=== PATIENT | female | born 1950 | race Caucasian/White ===

== ENCOUNTER 2019-11-24 11:40 | Outpatient (CLI) | payer MEDICARE, BC, SELFPAY ==
--- NOTE | 2019-11-24 11:46 | MM_ITS ---
WS: [id number] Bilateral screening digital mammogram, 11/24/2019 Clinical Data: SCREENING Comparison: 10/21/2018, 10/03/2017, 10/27/2015, 01/25/2011, 06/17/2008. Findings: The breast parenchymal pattern shows heterogeneous density No spiculated masses or clustered calcific ations are seen. There are no secondary signs of carcinoma. MM/[id number] Impression: 1. Negative bilateral mammogram unchanged. 2. Recommend annual screening mammograms. BIRADS: 1-Negative FOLLOW UP: 1 Year Follow-up The CAD glass checker was used.
== END 2019-11-24 11:41 | disposition home or self-care (01) ==
LOC: RADSHAW 11:45
PROVIDERS: PCP Nurse Practitioner Family; Visit Provider Nurse Practitioner Family
DX: Z12.31 Encounter for screening mammogram for malignant neoplasm of breast (principal)
CPT/HCPCS: 77067

== ENCOUNTER 2021-01-03 09:08 | Outpatient (CLI) | payer MEDICARE, BC, SELFPAY ==
--- NOTE | 2021-01-03 09:15 | MM_ITS ---
WS: [id number] Bilateral screening digital mammogram, 01/03/2021 Clinical Data: SCREENING Comparison: 11/24/2019, 10/21/2018, 10/08/2017, 10/27/2015, 01/25/2011, 06/17/2008. Findings: The breast parenchymal pattern shows heterogeneous density. No spiculated masses or clustered calcif ications are seen. There are no secondary signs of carcinoma. MM/[id number] Impression: 1. Negative bilateral mammogram unchanged. 2. Recommend annual screening mammograms. BIRADS: 1-Negative FOLLOW UP: 1 Year Follow-up The CAD box car checker was used.
== END 2021-01-03 09:09 | disposition home or self-care (01) ==
LOC: RADSHAW 09:14
PROVIDERS: PCP Nurse Practitioner Family; Visit Provider Nurse Practitioner Family
DX: Z12.31 Encounter for screening mammogram for malignant neoplasm of breast (principal)
CPT/HCPCS: 77067

== ENCOUNTER 2022-01-16 08:30 | Outpatient (CLI) | payer MEDICARE, BC, SELFPAY ==
--- NOTE | 2022-01-16 08:41 | MM_ITS ---
WS: [id number] BILATERAL SCREENING DIGITAL TOMOSYNTHESIS MAMMOGRAM WITH CAD HISTORY: SCREENING COMPARISON: 01/03/2021 and 11/24/2019 Bilateral CC and MLO views with tomosynthesis and synthetic mammography submitted. Computer aided det ection analyzed. Breast composition: There are scattered areas of fibroglandular density. No suspicious masses, microc alcifications or architectural distortion. Asymmetries within each breast are stable since at least . MM/[id number] IMPRESSION: BI-RADS: 2-Benign FOLLOW UP: 1 Year Follow-up
== END 2022-01-16 08:31 | disposition home or self-care (01) ==
LOC: RAD 08:31
PROVIDERS: PCP Nurse Practitioner Family; Visit Provider Nurse Practitioner Family
DX: Z12.31 Encounter for screening mammogram for malignant neoplasm of breast (principal)
CPT/HCPCS: 77063; 77067

== ENCOUNTER 2023-01-28 08:45 | Outpatient (CLI) | payer MEDICARE, SELFPAY ==
--- NOTE | 2023-01-28 08:53 | MM_ITS ---
WS: [id number] BILATERAL 3D TOMOSYNTHESIS DIGITAL SCREENING MAMMOGRAPHY WITH CAD CLINICAL INFORMATION: SCREENING HISTORY: Screening mammogram. No current complaints. COMPARISON: 2021 TECHNIQUE: Bilateral CC and MLO views. FINDINGS: Scattered fibroglandular densities bilaterally. No suspicious focal mass, asymmetry, calcifications, or architectural distortion. No evidence of malignancy. Vascular calcification. Incidental punctate c alcifications. IMPRESSION: MM/[place] [id number] BI-RADS: 2-Benign FOLLOW UP: 1 Year Follow-up Recommend return to annual screening mammography.
== END 2023-01-28 08:46 | disposition home or self-care (01) ==
PROVIDERS: PCP Nurse Practitioner Family; Visit Provider Nurse Practitioner Family
DX: Z12.31 Encounter for screening mammogram for malignant neoplasm of breast (principal)
CPT/HCPCS: 77063; 77067

== ENCOUNTER 2023-08-07 18:18 | Inpatient (IN) | payer MEDICARE, SELFPAY ==
[2023-08-07] VITALS (7 sets, daily range): BP systolic 102–165; BP diastolic 65–86; PULSE 70–77; RESP 16–18; TEMP 36.6–36.9; O2SAT 95–97; BMI 23.7; BMI 24.4
--- NOTE | 2023-08-07 18:30 | W.ED.EXTPRO ---
HPI - Extremity Problem General: Chief complaint: Extremity Injury, Lower Stated complaint: FALL; HIP PAIN Time Seen by Provider: 08/07/23 18:29 History of Present Illness: Patient presents to the ER status post fall. Patient was helping her in a wheelchair and fell landed on her left hip region. This area is exquisitely tender to palpation there is shortening of the leg. Patient is not on any anticoagulants and denies hitting her head or pain anywhere else. Review of Systems General: Reports: 10 or more systems reviewed and unremarkable except in HPI and below Physical Exam Const: COMMON NORMALS: no acute distress, average body habitus, patient oriented x3, no limitations, healthy appearing, alert and well nourished HENMT: COMMON NORMALS: normocephalic, atraumatic, hearing grossly normal bilaterally, external ears normal, Normal external nose present, moist oral mucous membranes and oropharynx normal HEAD & SCALP: normocephalic and atraumatic NOSE: Normal external nose present EXTERNAL EAR: Yes external ears normal Neck/C-Spine: COMMON NORMALS: full ROM, no lymphadenopathy, supple, no meningeal signs, no JVD and Thyroid normal THYROID: Thyroid normal Chest: COMMONS NORMALS: normal inspection of the chest and normal palpation of entire chest wall Resp: COMMON NORMALS: normal respiratory effort, No retractions, No use of accessory muscles and clear to auscultation bilaterally AUSCULTATION: clear to auscultation bilaterally Cardio: COMMON NORMALS: no JVD, regular rate, regular rhythm, S1 normal heart sound present, S2 normal heart sound present, No gallops present (Cardio), No clicks present (Cardio), No murmurs present (Cardio) and No rub (Cardio) RATE: regular rate RHYTHM: regular rhythm HEART SOUNDS: S1 normal heart sound present and S2 normal heart sound present GI: COMMON NORMALS: Normal to inspection, nondistended, normoactive bowel sounds present, Soft to palpation, non-tender, No hepatosplenomegaly present and no masses PALPATION: Yes Soft to palpation and Yes No hepatosplenomegaly present Extremity: NARRATIVE EXTREMITY EXAM: Mild shortening and external rotation of the left lower extremity, pain with palpation of the hip, limited range of motion, Neuro: COMMON NORMALS: patient oriented x3 SENSORIUM/ORIENTATION: Yes alert MENINGEAL SIGNS: Yes no meningeal signs Course Vital Signs: Vital signs: Vital Signs Temperature 98.5 F 08/07/23 18:23 Pulse Rate 70 08/07/23 20:23 Respiratory Rate 18 08/07/23 20:23 Blood Pressure 145/75 08/07/23 20:23 Pulse Oximetry 97 08/07/23 20:23 Oxygen Delivery Me thod Room Air 08/07/23 20:23 MDM - Extremity (Nontraumatic) Medical Decision Making Patient had x-ray of the hip which showed a subcapital hip fracture, we then proceeded with presurgical clearance once official report was obtained we called Dr. Traylor who agreed to consult the patient and probably operate on her tomorrow. He would like her admitted to the hospitalist. Dr. Osorio was notified and agreed to place patient in [facility] for evaluation and treatment. Differential Diagnosis Unlikely herpes zoster, gout, cellulitis, superficial thrombophlebitis, deep venous thrombosis of upper extremity, lower extremity edema or deep vein thrombosis of lower extremity Medical Records I reviewed the patient's medical records. Lab Data I reviewed the patient's lab results. Radiology Impressions Hip/Pelvis X-Ray 08/07/23 18:35 IMPRESSION: Subcapital hip fracture. Chest X-Ray 08/07/23 19:20 IMPRESSION: No acute findings. 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
--- NOTE | 2023-08-07 18:35 | XRR_ITS ---
PROCEDURE INFORMATION: Exam: XR Left Hip Exam date and time: 08/07/2023 6:54 PM Age: 73 years old Clinical indication: Injury or trauma; Fall; Other: Unknown; Additional info: Fall hip pain TECHNIQUE: Imaging protocol: Radiologic exam of the left hip. Views: 2 or 3 views hip with pelvis when performed. COMPARISON: No relevant prior studies available. FINDINGS: Bones/joints: Subcapital hip fracture. Soft tissues: Unremarkable. XR/XR hip LT 2-3V wo/w pel* [id number] IMPRESSION: Subcapital hip fracture.
--- NOTE | 2023-08-07 19:20 | XRR_ITS ---
PROCEDURE INFORMATION: Exam: XR Chest Exam date and time: 08/07/2023 7:27 PM Age: 73 years old Clinical indication: Injury or trauma; Fall; Other: Unknown TECHNIQUE: Imaging protocol: Radiologic exam of the chest. Views: 1 view. COMPARISON: No relevant prior studies available. FINDINGS: Lungs: Unremarkable. No consolidation. Pleural spaces: Unremarkable. No pleural effusion. No pneumothorax. Heart/Mediastinum: Unremarkable. No cardiomegaly. Bones/joints: Unremarkable. XR/XR chest 1V portable [id number] IMPRESSION: No acute findings.
[2023-08-07] MEDS: ondansetron 2 mg/ML SDV 2 mL 4 MG IVP (20:20)
[2023-08-07] MEDS: morphine 4 mg/mL SDV 1 mL IVP (20:21)
--- NOTE | 2023-08-07 20:23 | ECG_ITS ---
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 Measurements Intervals Warren Rate: 73 P: 64 MS: 164 QRS: 53 QRSD: 90 T: 58 QT: 371 QTc: 411 Interpretive Statements SINUS RHYTHM LOW QRS VOLTAGE IN PRECORDIAL LEADS [QRS DEFLECTION < 1.0 mV IN CHEST LEADS] No previous ECG available for comparison Electronically Signed On 08-09-2023 19:16:54 CDT by Kristal Lindsey M.D. [email or web address]
--- NOTE | 2023-08-07 20:34 | P.HP_ITS ---
Providers/Chief Complaint 2 Primary Care Provider: Leighann Sharp Chief Complaint: FALL; HIP PAIN History of Present Illness Marina Crump is a 73 year old female who was helping her maneuver his wheelchair when she lost balance and fell on the floor, in the ER she has been diagnosed with subcapital hip fracture, Dr. Traylor consulted who has requested hospitalist to admit the patient. Patient is stating that she is has live a very healthy life, she is not diabetic, no history of coronary disease or CHF. She is fairly active, able to take a flight of stairs, walks 1 mile per day. Takes care of her sick . She is attributing her fall to losing balance while helping her today. Review of Systems 2 Const: Denies: fever(s) Eyes: Denies: change in vision ENMT: Denies: throat pain Card: Denies: chest pain Resp: Denies: dyspnea GI: Denies: abdominal pain : Denies: flank pain Medications/Allergies Allergies Allergy/AdvReac Type Severity Reaction Status Date / Time Sulfa (Sulfonamide Allergy ALGY-Rash Verified 08/07/23 18:29 Antibiotics) PFSH Acute 2 PFSH: Medical History (Updated 08/07/23 @ 21:14 by Britney Osorio MD) No pertinent past medical history Surgical History (Updated 08/07/23 @ 21:14 by Britney Osorio MD) No history of previous surgery Family History (Updated 08/07/23 @ 21:14 by Birtney Osorio MD) Other CAD (coronary artery disease) Social History (Updated 08/07/23 @ 21:14 by Britney Osorio MD) Smoking and tobacco/nicotine status: never used tobacco/nicotine Alcohol intake: never Vitals/I&O/Wt Last Vital Signs Temp 98.5 F 08/07/23 18:23 Pulse 70 08/07/23 20:23 Resp 18 08/07/23 20:23 BP 145/75 08/07/23 20:23 Pulse Ox 97 08/07/23 20:23 O2 Del Method Room Air 08/07/23 20:23 Weight last 48 hrs Weight 79.379 kg Physical Exam 2 Narrative: female Pleasant Dehydrated GCS 15 Left leg shortened and right Known to vascular compromise GCS 15 Pleasant cooperative S1, S2 Currently patient is on room air Son is at the bedside Data 08/07/23 20:42 08/07/23 20:42 A&P Assessment and plan (1) Fracture of hip: Qualifiers: Encounter type: initial encounter Fracture type: closed Laterality: l eft Qualified Code(s): S72.002A - Fracture of unspecified part of neck of left femur, initial encounter for closed fracture (2) Fall: Qualifiers: Encounter type: initial encounter Qualified Code(s): W19.XXXA - Unspecified fall, initial encounter Plan Mechanical fall Hip fracture Dr. Traylor consulted N.p.o. after midnight Continue fluids Added bowel regimen along opioids Perry catheter placed Vitamin D and calcium supplementation, I have asked patient to follow-up with PCP for bisphosphonate initiation No preoperative workup needed patient is fairly active able to take flight of stairs, walks 1 mile per day No history of CHF [place] or diabetes Full code N.p.o. after midnight DVT prophylaxis: SCDs Attestations 2 Medical Necessity Statement*: More than 2 midnights anticipated Diagnoses Fracture of hip S72.002A Encounter type: initial encounter Fracture type: closed Laterality: left Fall W19.XXXA Encounter type: initial encounter
[2023-08-07 20:52] LABS: Basophils % 0.4 %; Eosinophils % 0.4 %; Hematocrit 38.2 % (36-47); Lymphocytes % 10.5 %; Mean Corpuscular HGB Conc 32.5 g/dL (30-55); Mean Corpuscular Hemoglobin 30.3 pg (27-33); Mean Corpuscular Volume 93.4 fl (85-98); Mean Platelet Volume 9.7 fL (7.4-10.4); Monocytes # 0.4 10^3/uL (0.2-0.9); Monocytes % 4.5 %; Neutrophils % 83.7 %; Nucleated Red Blood Cells % 0 %; Platelet Count 201 10^3/cmm (157-399); Red Blood Count 4.09 10^6/uL (3.85-5.65); Red Cell Distribution Width 13.5 % (12.1-15.1)
[2023-08-07 21:07] LABS: INR 1.02 (0.8-1.2)
[2023-08-07 21:11] LABS: Alanine Aminotransferase 15 U/L (0-33); Albumin Level 3.9 g/dL (3.5-5.2); Alkaline Phosphatase 76 U/L (35-105); Anion Gap 15.7 (5-19); Aspartate Amino Transferase 20 U/L (0-32); Blood Urea Nitrogen 14 mg/dL (8-23); Calcium 9.2 mg/dL (8.5-10.5); Carbon Dioxide 23 mmol/L (22-29); Chloride 101 mmol/L (98-107); Creatinine Clr Calc Pharmacy 74.7583; Glucose 88 mg/dL (65-115); Osmolality Calculated 282 mOsm/kg (285-295); Potassium 3.7 mmol/L (3.5-5.1); Sodium 136 mmol/L (136-145); Total Bilirubin 0.6 mg/dL (0.15-1.2); Total Protein 6.9 g/dL (6.6-8.7)
[2023-08-07 21:52] LABS: D Dimer >= 20.00 ug/mLFEU (0-0.59)
[2023-08-07] MEDS: sodium chloride 0.9% 1,000 ML 75 ML IV (23:26)
[2023-08-07] MEDS: morphine IR 15 mg Tablet PO (23:26)
[2023-08-08] VITALS (19 sets, daily range): BP systolic 97–139; BP diastolic 52–78; PULSE 68–92; RESP 10–18; TEMP 36.4–37.3; O2SAT 90–100
[2023-08-08 00:10] LABS: 25 Hydroxy Vitamin D 34 ng/mL (30-100)
[2023-08-08 00:12] LABS: Thyroid Stimulating Hormone 3.74 uIU/mL (0.27-4.20); Vitamin B12 1520 pg/mL (232-1245)
[2023-08-08 00:22] LABS: Estmated Average Glucose 100; Hemoglobin A1C 5.1 % (4.0-6.0)
[2023-08-08 05:54] LABS: Basophils % 0.5 %; Eosinophils # 0.1 10^3/uL (0.0-0.8); Eosinophils % 1.4 %; Hematocrit 37.6 % (36-47); Lymphocytes # 0.7 10^3/uL (0.8-4.8); Lymphocytes % 12.3 %; Mean Corpuscular HGB Conc 31.6 g/dL (30-55); Mean Corpuscular Hemoglobin 30.7 pg (27-33); Mean Corpuscular Volume 96.9 fl (85-98); Mean Platelet Volume 10.4 fL (7.4-10.4); Monocytes # 0.4 10^3/uL (0.2-0.9); Monocytes % 6.6 %; Neutrophils # 4.55 10^3/uL (1.8-7.7); Neutrophils % 78.9 %; Nucleated Red Blood Cells % 0 %; Platelet Count 192 10^3/cmm (157-399); Red Blood Count 3.88 10^6/uL (3.85-5.65); Red Cell Distribution Width 13.8 % (12.1-15.1); White Blood Count 5.77 10^3/uL (3.29-11.43)
[2023-08-08 06:13] LABS: Blood Urea Nitrogen 13 mg/dL (8-23); Calcium 8.7 mg/dL (8.5-10.5); Carbon Dioxide 22 mmol/L (22-29); Chloride 104 mmol/L (98-107); Creatinine Clr Calc Pharmacy 77.3235; Glucose 90 mg/dL (65-115); Magnesium 1.8 mg/dL (1.7-2.3); Osmolality Calculated 282 mOsm/kg (285-295); Sodium 136 mmol/L (136-145)
[2023-08-08 06:18] LABS: Anion Gap 14.1 (5-19); Potassium 4.1 mmol/L (3.5-5.1)
--- NOTE | 2023-08-08 06:44 | P.CONIM_ITS ---
Providers/Reason For Consult 2 Consulting Physician/Specialty*: Hospitalist Reason for Consult*: Left hip fracture Attending Physician: Britney Osorio MD Primary Care Provider: Leighann Sharp History of Present Illness History of Present Illness Marina Crump is a 73 year old female fell trying to help her maneuver his wheelchair Review of Systems 2 Const: Denies: fever(s) Eyes: Denies: change in vision ENMT: Denies: throat pain Card: Denies: chest pain Resp: Denies: dyspnea GI: Denies: abdominal pain : Denies: flank pain Medications/Allergies Allergies Allergy/AdvReac Type Severity Reaction Status Date / Time Sulfa (Sulfonamide Allergy ALGY-Rash Verified 08/07/23 18:29 Antibiotics) Current Medications Generic Name Dose Route Start Last Admin Trade Name Freq PRN Reason Stop Dose Admin Sodium Chloride 1,000 mls @ 75 mls/hr 08/07/23 22:55 08/07/23 23:26 Sodium Chloride 0.9% IV 75 mls/hr .[id number] MICHELLE Administration Morphine Sulfate 15 mg 08/07/23 22:55 08/07/23 23:26 Morphine Ir 15 Mg Tablet PO 15 mg Q6H PRN Administration MODERATE PAIN PFSH Acute 2 PFSH: Medical History (Updated 08/07/23 @ 21:14 by Britney Osorio MD) No pertinent past medical history Surgical History (Updated 08/07/23 @ 21:14 by Britney Osorio MD) No history of previous surgery Family History (Updated 08/07/23 @ 21:14 by Britney Osorio MD) Other CAD (coronary artery disease) Social History (Updated 08/07/23 @ 21:14 by Britney Osorio MD) Smoking and tobacco/nicotine status: never used tobacco/nicotine Alcohol intake: never Vitals/I&O/Wt Last Vital Signs Temp 98.8 F 08/08/23 04:00 Pulse 77 08/08/23 04:00 Resp 17 08/08/23 04:00 BP 110/68 08/08/23 04:00 Pulse Ox 93 08/08/23 04:00 O2 Del Method Room Air 08/07/23 22:55 08/07/23 08/07/23 08/08/23 14:59 22:59 06:59 Intake Total 0 / 0 Output Total 500 / 500 Balance -500 / -500 Weight last 48 hrs Weight 189 lb 4.8 oz Weight 180 lb Weight 175 lb Physical Exam 2 Narrative: Left leg shortened externally rotated Urinary Catheter Management: Perry: Cath Placed During This Visit: yes Reason for Continuing Indwelling Catheter: Perioperative Use in Selected Surgeries Urinary Catheter Date of Insertion: 08/07/23 Urinary Catheter Time of Insertion: 21:14 Data 08/08/23 05:28 08/08/23 05:28 A&P Assessment and plan (1) Fracture of hip: Left hip hemiarthroplasty today Qualifiers: Encounter type: initial encounter Fracture type: closed Laterality: l eft Qualified Code(s): S72.002A - Fracture of unspecified part of neck of left femur, initial encounter for closed fracture Consult Attestations 2 Medical Necessity Statement: Pain control Coding Level of Care Code Acute Code for [facility] Fwd Diagnoses Fracture of hip S72.002A Encounter type: initial encounter Fracture type: closed Laterality: left
--- NOTE | 2023-08-08 09:12 | PC.CHAP ---
Pastoral Care Encounter/Spiritual Assessment Type of Contact [] Declined buhr dresser visit [] Patient/Family/Request visit [] Outpatient visit [] Follow-up visit [] Physician referral [] Code/Alert [x] Routine visit [] Staff referral [] Actively dying [] Patient sleeping [x] Family support [] [] Out of room [] Palliative care [] [] Receiving care in room [] Pre-surgical visit [] Trauma [] Long length of stay [] ICU visit [] Other: Relational/Emotional Strength [x] Patient feels connected with others/family/visitors/staff [] Distress [] Loneliness/isolation [] Abandonment Spirituality of Patient [x] Person of Carey [x] Attends Nondenominational of their [place] [x] Believes in Prayer [x] Reads Bible or Yazdanism materials [] There are Spiritual issues to be addressed Etymology Teacher Interventions [x] Prayer [x] Active listening [] Non-anxious presence [x] Spiritual/emotional support [] Crisis/trauma care [] Spiritual counseling [] Bereavement support [] Provided bereavement packet [] Provided Bible/devotional materials [] Provided toy/stuffed animal, coloring book to patient or family member [] Provided Communion [] Anointing/[place] [] Salvation [x] Completed spiritual assessment [] Other: Impact on Illness or Injury [] Angry [] Fearful [] Anxious [] Often cries [] Exhaustion [] Unable to work [] Unable to attend synagogue [] Unable to walk/stand [] Unable to read [] Unable to drive [] Unable to eat/drink [] Unable to sleep [] Unable to be with family [] Patient intubated [] Other: Summary Time spent with patient 5 min
[2023-08-08] MEDS: HYDROmorphone 1 mg/mL INJ 1 mL 0.400000000000000022 MG IVP (09:29)
--- NOTE | 2023-08-08 11:17 | PC.SOCIAL ---
IMM Update Pg. 2 of IMM updated and reviewed with patient, who verbalized understanding. Copy provided.
--- NOTE | 2023-08-08 11:50 | P.ANESASSM_ITS ---
Pre-Anesthetic Assessment Height/Weight: Height 1.83 m Weight 85.865 kg Temp Pulse Resp BP Pulse Ox O2 Del Method 98.0 F 78 16 103/62 93 Room Air 08/08/23 07:40 08/08/23 08:21 08/08/23 08:21 08/08/23 07:40 08/08/23 08:21 08/08/23 08:21 Operation Date: 08/08/23 13:35 Proposed Procedures p Hemiarthroplasty Hip(Left) - Wyatt Traylor, DO Familial anesthetic complications: None Was Beta Ramon taken within 24 hours: N/A Was Clonidine taken within 24 hours: N/A Last intake: Intake Last Liquid Date 08/08/23 Last Liquid Time 00:00 Last Solid Date 08/07/23 Last Solid Time 20:45 Social No alcohol and No tobacco Exam alert, oriented x 3, clear to auscultation bilaterally and regular rate & rhythm Airway Mallampati: Class I Dentition: full Anesthetic Plan ASA status: 1 Anesthesia: General Risk of > 500 ml blood loss (7ml/kg in children): No Medications/Allergies Home Medications Medication Instructions Recorded Confirmed Last Taken Type cholecalciferol (vitamin D3) 50 50 mcg PO QAM 08/08/23 08/08/23 08/07/23 History mcg (2,000 unit) capsule (Vitamin D3) magnesium 200 mg tablet 200 mg PO QAM 08/08/23 08/08/23 08/07/23 History multivitamin 1 tab PO QAM 08/08/23 08/08/23 08/07/23 History Allergies Allergy/AdvReac Type Severity Reaction Status Date / Time Sulfa (Sulfonamide Allergy ALGY-Rash Verified 08/07/23 18:29 Antibiotics) Current Medications Generic Name Dose Route Start Last Admin Trade Name Freq PRN Reason Stop Dose Admin Hydromorphone HCl 0.4 mg 08/07/23 22:55 08/08/23 09:29 Hydromorphone 1 Mg/Ml Inj 1 Ml IVP 0.4 mg Q4H PRN Administration SEVERE PAIN Sodium Chloride 1,000 mls @ 75 mls/hr 08/07/23 22:55 08/07/23 23:26 Sodium Chloride 0.9% IV 75 mls/hr .[id number] MICHELLE Administration Morphine Sulfate 15 mg 08/07/23 22:55 08/07/23 23:26 Morphine Ir 15 Mg Tablet PO 15 mg Q6H PRN Administration MODERATE PAIN Senna/Docusate Sodium 1 tab 08/08/23 09:00 08/08/23 10:22 Sennosides-Docusate Tablet PO Not Given DAILY [facility] Anesthesia Medical History (Updated 08/07/23 @ 21:14 by Britney Osorio MD) No pertinent past medical history Surgical History (Updated 08/07/23 @ 21:14 by Britney Osorio MD) No history of previous surgery Family History (Updated 08/07/23 @ 21:14 by Britney Osorio MD) Other CAD (coronary artery disease) Social History (Updated 08/07/23 @ 21:14 by Britney Osorio MD) Smoking and tobacco/nicotine status: never used tobacco/nicotine Alcohol intake: never Data Anesthesia 08/08/23 05:28 08/08/23 05:28 Short CBC 08/07/23 08/08/23 Range/Units 20:42 05:28 WBC 9.10 5.77 (3.29-11.43) 10^3/uL Hgb 12.40 11.90 (11.27-16.99) g/dL Hct 38.2 37.6 (36-47) % MCV 93.4 96.9 (85-98) fl Plt Count 201 192 (157-399) 10^3/cmm Neut % (Auto) 83.7 78.9 % Neut # (Auto) 7.60 4.55 (1.8-7.7) 10^3/uL BMP 08/07/23 08/08/23 20:42 05:28 Sodium 136 136 Potassium 3.7 4.1 Chloride 101 104 Carbon Dioxide 23 22 BUN 14 13 Creatinine 0.6 0.5 Glucose 88 90 Calcium 9.2 8.7 Liver Function 08/07/23 Range/Units 20:42 Total Bilirubin 0.6 (0.15-1.2) mg/dL AST 20 (0-32) U/L ALT 15 (0-33) U/L Alkaline Phosphatase 76 (35-105) U/L Albumin 3.9 (3.5-5.2) g/dL Blood Bank 08/07/23 20:42 Blood Type AB Positive Rho(D) Type Rh positive Antibody Screen Negative Coags 08/07/23 20:42 PT 13.70 INR 1.02 D-Dimer >= 20.00 H Cardiac Studies: 2 No Data to Display
[2023-08-08] MEDS: sodium chloride 0.9% 1,000 ML 30 ML IV (12:14)
--- NOTE | 2023-08-08 12:35 | P.PN_ITS ---
Subjective 2 Subjective: seen this morning. plan for surgery later today Vitals/I&O/Wt Last Vital Signs Temp 98.0 F 08/08/23 11:50 Pulse 87 08/08/23 11:50 Resp 18 08/08/23 11:50 BP 139/78 08/08/23 11:50 Pulse Ox 93 08/08/23 11:50 O2 Del Method Room Air 08/08/23 11:50 08/07/23 08/08/23 08/08/23 22:59 06:59 14:59 Intake Total 0 / 0 Output Total 500 / 500 Balance -500 / -500 Weight last 48 hrs Weight 85.865 kg Weight 81.647 kg Weight 79.379 kg Physical Exam 2 Narrative: female Pleasant GCS 15 Left leg shortened and right GCS 15 Pleasant cooperative S1, S2 Currently patient is on room air Son is at the bedside Urinary Catheter Management: Perry: Cath Placed During This Visit: yes Reason for Continuing Indwelling Catheter: Perioperative Use in Selected Surgeries Urinary Catheter Date of Insertion: 08/07/23 Urinary Catheter Time of Insertion: 21:14 Data 08/08/23 05:28 08/08/23 05:28 A&P Assessment and plan (1) Fracture of hip: Qualifiers: Encounter type: initial encounter Fracture type: closed Laterality: l eft Qualified Code(s): S72.002A - Fracture of unspecified part of neck of left femur, initial encounter for closed fracture (2) Fall: Qualifiers: Encounter type: initial encounter Qualified Code(s): W19.XXXA - Unspecified fall, initial encounter Plan Mechanical fall Hip fracture Dr. Traylor consulted N.p.o.today for surgery Continue fluids Added bowel regimen along opioids Perry catheter placed Vitamin D and calcium supplementation, I have asked patient to follow-up with PCP for bisphosphonate initiation No preoperative workup needed patient is fairly active able to take flight of stairs, walks 1 mile per day No history of CHF [place] or diabetes Full code N.p.o. after midnight DVT prophylaxis: SCDs No other medical problems as per patient Attestations 2 Medical Necessity Statement*: More than 2 midnights anticipated Diagnoses Fracture of hip S72.002A Encounter type: initial encounter Fracture type: closed Laterality: left Fall W19.XXXA Encounter type: initial encounter
[2023-08-08] MEDS: ceFAZolin 2,000 MG in sodium chloride 0.9% (plus) 50 ML 100 MG IV ×2 (12:44→21:06)
--- NOTE | 2023-08-08 14:18 | PM.OP ---
Operative Report Date of procedure: August 08, 2023 Pre-op diagnosis: Left femoral neck fracture Post-op diagnosis: same Procedure done: Left hip hemiarthroplasty Surgeon: Wyatt Traylor DO Estimated blood loss (mL): 50 Procedure: Left hip hemiarthroplasty Patient is brought to the operative suite after undergoing his fusion was placed in the lateral cubitus position of the left side up. Patient was prepped draped normal sterile fashion. Legs appear well-padded. Skin incision made over the left hip. Modified El approach was used IT band was split abductors and capsule were taken anteriorly. Femoral neck cut was made proximally fingerbreadth above the lesser trochanter. The femoral head was then removed his measured to be 47. The canal was then prepped using the dry box operator followed by the canal finder followed by the lateralizer. Followed by broaching up to 7 using the Crittenden system. A size 7 Crittenden stem was then inserted. A negative for neck length and a size 47 head were then placed. Hip was reduced. The joint was felt to be stable in all positions. The wound was then irrigated and closed in layered fashion closing the Abductors with FiberWire IT Band Was Closed with Partial FiberWire and 1 Vicryl. And Then the Skin Was Closed with 0 Vicryl 2-0 Vicryl and Elio. Sterile Dressings Applied Patient Was Transferred to the PACU in Stable Condition.
[2023-08-08] MEDS: HYDROcodone-acetaminophen 5-325 mg Tablet PO (21:46)
[2023-08-09] VITALS (8 sets, daily range): BP systolic 97–166; BP diastolic 52–72; PULSE 68–88; RESP 14–18; TEMP 36.4–37.1; O2SAT 93–99; BMI 23.7
[2023-08-09 05:25] LABS: Basophils % 0.1 %; Hematocrit 35.2 % (36-47); Lymphocytes # 0.7 10^3/uL (0.8-4.8); Lymphocytes % 7.9 %; Mean Corpuscular HGB Conc 30.7 g/dL (30-55); Mean Corpuscular Hemoglobin 30.2 pg (27-33); Mean Corpuscular Volume 98.3 fl (85-98); Mean Platelet Volume 10.1 fL (7.4-10.4); Monocytes # 0.5 10^3/uL (0.2-0.9); Monocytes % 6.3 %; Neutrophils # 7.36 10^3/uL (1.8-7.7); Neutrophils % 85.2 %; Nucleated Red Blood Cells % 0 %; Platelet Count 163 10^3/cmm (157-399); Red Blood Count 3.58 10^6/uL (3.85-5.65); Red Cell Distribution Width 13.3 % (12.1-15.1); White Blood Count 8.63 10^3/uL (3.29-11.43)
[2023-08-09] MEDS: ceFAZolin 2,000 MG in sodium chloride 0.9% (plus) 50 ML 100 MG IV ×2 (05:35→13:35)
[2023-08-09 05:44] LABS: Blood Urea Nitrogen 11 mg/dL (8-23); Calcium 8.4 mg/dL (8.5-10.5); Carbon Dioxide 20 mmol/L (22-29); Chloride 104 mmol/L (98-107); Creatinine Clr Calc Pharmacy 77.3235; Glucose 143 mg/dL (65-115); Osmolality Calculated 282 mOsm/kg (285-295); Sodium 135 mmol/L (136-145)
[2023-08-09] MEDS: sodium chloride 0.9% 1,000 ML 999 ML IV (07:27)
--- NOTE | 2023-08-09 07:34 | PC.NURSE ---
At 0615 this nurse entered room to remove pt lomas and assist to the chair. Lomas removed and pt tolerated well. Then pt assisted to side of bed. She sat there for a minute or so. Then stated she was ready to stand and get to the chair. Pt tolerated this activity well. Right as pt was about to sit in chair, she stated she felt dizzy, assisted down to chair. Pt states she does this all the time. When BP checked it was reported as 68/40. Pt assisted back to bed, placed in trendelenburg, and Dr. Ventura called and notified. Orders given to blous 1 L of NS.
[2023-08-09] MEDS: apixaban 5 mg Tablet 2.5 MG PO (09:25)
--- NOTE | 2023-08-09 10:20 | CTR_ITS ---
PROCEDURE INFORMATION: Exam: CTA Chest With Contrast Exam date and time: 08/09/2023 12:41 PM Age: 73 years old Clinical indication: Abnormal findings; Abnormal diagnostic tests; Elevated d-dimer; Additional info: High d-dimer TECHNIQUE: Imaging protocol: Computed tomographic angiography of the chest with contrast. Exam focused on the arteries. 3D rendering (Not supervised by radiologist): MIP and/or 3D reconstructed images were created by the technologist. Radiation optimization: All CT scans at this facility use at least one of these dose optimization techniques: automated exposure control; mA and/or kV adjustment per patient size (includes targeted exams where dose is matched to clinical indication); or iterative reconstruction. Contrast material: OMNI 350; Contrast volume: 78 ml; Contrast route: INTRAVENOUS (IV); COMPARISON: CR (CHEST, ) 08/07/2023 7:27 PM RADIATION DOSE METRICS: Total DLP (mGy-cm): 393.47 FINDINGS: Pulmonary arteries: There is a pulmonary embolism involving a right lower lobe pulmonary artery branch. No other emboli can be seen. The RV/LV ratio is 0.8. Aorta: Unremarkable. No aortic aneurysm. No aortic dissection. Lungs: Unremarkable. No consolidation. No masses. Pleural spaces: Unremarkable. No pneumothorax. No pleural effusion. Heart: Unremarkable. No cardiomegaly. No pericardial effusion. Lymph nodes: Unremarkable. No enlarged lymph nodes. Bones/joints: Unremarkable. No acute fracture. Soft tissues: Unremarkable. CT/CT angio chest PE protcl [id number] IMPRESSION: Small isolated pulmonary embolus involving the right lower lobe. No evidence of heart strain.
--- NOTE | 2023-08-09 10:44 | P.PN_ITS ---
Subjective 2 Subjective: Patient is doing well sitting up in chair pain is controlled. Ambulated with physical therapy Vitals/I&O/Wt Last Vital Signs Temp 97.6 F 08/09/23 07:58 Pulse 69 08/09/23 07:58 Resp 18 08/09/23 07:58 BP 100/58 08/09/23 07:58 Pulse Ox 97 08/09/23 07:58 O2 Del Method Room Air 08/09/23 07:58 O2 Flow Rate 98 08/08/23 14:40 08/08/23 08/09/23 08/09/23 22:59 06:59 14:59 Intake Total 550 / 600 50 / 650 680 / 680 Output Total 250 / 850 500 / 1350 Balance 300 / -250 -450 / -700 680 / 680 Weight last 48 hrs Weight 175 lb Weight 189 lb 4.8 oz Weight 180 lb Weight 175 lb Physical Exam 2 Narrative: Sitting up in chair has good spirits Urinary Catheter Management: Perry: Cath Placed During This Visit: yes, but has since been removed by the nurse Reason for Continuing Indwelling Catheter: Perioperative Use in Selected Surgeries Urinary Catheter Date of Insertion: 08/07/23 Urinary Catheter Time of Insertion: 21:14 Date Urinary Catheter Removed: 08/09/23 Time Urinary Catheter Discontinued: 06:35 Data 08/09/23 05:08 08/09/23 05:08 A&P Assessment and plan (1) Fracture of hip: Postop day 1 left hip hemiarthroplasty Eliquis for DVT prophylaxis Up with PT Discharge planning for Friday or Friday Qualifiers: Encounter type: initial encounter Fracture type: closed Laterality: l eft Qualified Code(s): S72.002A - Fracture of unspecified part of neck of left femur, initial encounter for closed fracture Attestations 2 Medical Necessity Statement*: Per primary service Coding Level of Care Code Acute Code for [facility] Fwd Diagnoses Fracture of hip S72.002A Encounter type: initial encounter Fracture type: closed Laterality: left
--- NOTE | 2023-08-09 12:33 | USR_ITS ---
PROCEDURE INFORMATION: Exam: US Duplex Lower Extremity Veins, Bilateral Exam date and time: 08/09/2023 5:19 PM Age: 73 years old Clinical indication: Screening exam; R/O dvt; Additional info: Rule out dvt TECHNIQUE: Imaging protocol: Real-time duplex ultrasound of the bilateral extremities with 2-D smith scale, color Doppler flow and spectral waveform analysis including responses to compression and other maneuvers (when performed) with image documentation. Complete exam focused on the lower extremity veins. COMPARISON: No relevant prior studies available. FINDINGS: Right deep veins: Unremarkable. The common femoral, femoral, proximal profunda femoral and popliteal veins are patent without thrombus. Normal Doppler waveforms. Normal compressibility and/or augmentation response. Posterior tibial and peroneal veins of the calf appear unremarkable. Left deep veins: Unremarkable. The common femoral, femoral, proximal profunda femoral and popliteal veins are patent without thrombus. Normal Doppler waveforms. Normal compressibility and/or augmentation response. Posterior tibial and peroneal veins of the calf appear unremarkable. Superficial veins: Greater saphenous veins at the saphenofemoral junctions are patent bilaterally without thrombus. Soft tissues: Unremarkable. US/[place] [id number] IMPRESSION: No evidence of deep vein thrombosis.
[2023-08-09] MEDS: iohexol 350 mg/mL 500 mL Btl (per mL) IV (12:45)
--- NOTE | 2023-08-09 12:49 | P.PN_ITS ---
Subjective 2 Subjective: seen this morning pt walked with walker upto recliner and back says she looks forward to going home overnight no events in AM while working with therapy, has episode of HYpotension ns bolus given, improved BP feels ok now Vitals/I&O/Wt Last Vital Signs Temp 98.4 F 08/09/23 11:53 Pulse 79 08/09/23 11:53 Resp 16 08/09/23 11:53 BP 109/72 08/09/23 11:53 Pulse Ox 98 08/09/23 11:53 O2 Del Method Room Air 08/09/23 11:53 O2 Flow Rate 98 08/08/23 14:40 08/08/23 08/09/23 08/09/23 22:59 06:59 14:59 Intake Total 550 / 600 50 / 650 680 / 680 Output Total 250 / 850 500 / 1350 Balance 300 / -250 -450 / -700 680 / 680 Weight last 48 hrs Weight 79.379 kg Weight 85.865 kg Weight 81.647 kg Weight 79.379 kg Physical Exam 2 Narrative: female Pleasant GCS 15 sitting up in recliner aox3 abd soft normal s1, s2 no edema b/l surgical incison intact Urinary Catheter Management: Perry: Cath Placed During This Visit: yes, but has since been removed by the nurse Reason for Continuing Indwelling Catheter: Perioperative Use in Selected Surgeries Urinary Catheter Date of Insertion: 08/07/23 Urinary Catheter Time of Insertion: 21:14 Date Urinary Catheter Removed: 08/09/23 Time Urinary Catheter Discontinued: 06:35 Data 08/09/23 05:08 08/09/23 05:08 A&P Assessment and plan (1) Fracture of hip: Qualifiers: Encounter type: initial encounter Fracture type: closed Laterality: l eft Qualified Code(s): S72.002A - Fracture of unspecified part of neck of left femur, initial encounter for closed fracture (2) Fall: Qualifiers: Encounter type: initial encounter Qualified Code(s): W19.XXXA - Unspecified fall, initial encounter Plan Mechanical fall Hip fracture s/p surgery Dr. Traylor consulted, appreciate recs Continue fluids NS 125 cc/hr, s/p ns bolus Added bowel regimen along opioids Perry catheter placed Vitamin D and calcium supplementation, I have asked patient to follow-up with PCP for bisphosphonate initiation No preoperative workup needed patient is fairly active able to take flight of stairs, walks 1 mile per day No history of CHF AR or diabetes if bp remains stable, plan for dc in am, PT consult placed. Full code N.p.o. after midnight DVT prophylaxis: SCDs No other medical problems as per patient Attestations 2 Medical Necessity Statement*: More than 2 midnights anticipated Diagnoses Fracture of hip S72.002A Encounter type: initial encounter Fracture type: closed Laterality: left Fall W19.XXXA Encounter type: initial encounter
[2023-08-09] MEDS: HYDROcodone-acetaminophen 5-325 mg Tablet PO ×2 (13:35→23:18)
[2023-08-09] MEDS: sodium chloride 0.9% 1,000 ML 100 ML IV ×2 (13:46→23:18)
[2023-08-09] MEDS: apixaban 5 mg Tablet 10 MG PO (20:30)
[2023-08-10] VITALS: BP 106/66; PULSE 83; RESP 18; TEMP 37.4; O2SAT 96
[2023-08-10 03:49] VITALS: BP 112/68; PULSE 81; RESP 18; TEMP 37.1; O2SAT 93
[2023-08-10 05:17] LABS: Basophils % 0.3 %; Eosinophils # 0.1 10^3/uL (0.0-0.8); Hematocrit 31.4 % (36-47); Lymphocytes # 1.3 10^3/uL (0.8-4.8); Lymphocytes % 19.2 %; Mean Corpuscular HGB Conc 31.5 g/dL (30-55); Mean Corpuscular Hemoglobin 30.2 pg (27-33); Mean Corpuscular Volume 95.7 fl (85-98); Mean Platelet Volume 10.4 fL (7.4-10.4); Monocytes # 0.6 10^3/uL (0.2-0.9); Monocytes % 8.5 %; Neutrophils % 70.7 %; Nucleated Red Blood Cells % 0 %; Platelet Count 148 10^3/cmm (157-399); Red Blood Count 3.28 10^6/uL (3.85-5.65); Red Cell Distribution Width 13.6 % (12.1-15.1); White Blood Count 6.93 10^3/uL (3.29-11.43)
[2023-08-10 05:39] LABS: Anion Gap 13.7 (5-19); Blood Urea Nitrogen 9 mg/dL (8-23); Calcium 7.5 mg/dL (8.5-10.5); Carbon Dioxide 23 mmol/L (22-29); Chloride 110 mmol/L (98-107); Glucose 99 mg/dL (65-115); Magnesium 1.7 mg/dL (1.7-2.3); Osmolality Calculated 295 mOsm/kg (285-295); Potassium 3.7 mmol/L (3.5-5.1); Sodium 143 mmol/L (136-145)
[2023-08-10] MEDS: apixaban 5 mg Tablet 10 MG PO (07:49)
[2023-08-10] MEDS: HYDROcodone-acetaminophen 5-325 mg Tablet PO ×2 (07:49→13:24)
[2023-08-10 07:59] VITALS: BP 108/70; PULSE 99; RESP 18; TEMP 37.2; O2SAT 94
[2023-08-10] MEDS: sodium chloride 0.9% 1,000 ML 100 ML IV (09:15)
[2023-08-10 09:20] VITALS: PULSE 84; RESP 18; O2SAT 95
--- NOTE | 2023-08-10 11:51 | P.PN_ITS ---
Subjective 2 Subjective: Patient doing well anticipate discharge today. Sitting at bedside pain controlled. Dressings changed clean dry and intact Vitals/I&O/Wt Last Vital Signs Temp 99 F 08/10/23 07:59 Pulse 84 08/10/23 09:20 Resp 18 08/10/23 09:20 BP 108/70 08/10/23 07:59 Pulse Ox 95 08/10/23 09:20 O2 Del Method Room Air 08/10/23 09:20 O2 Flow Rate 98 08/08/23 14:40 08/09/23 08/10/23 08/10/23 22:59 06:59 14:59 Intake Total 3730 / 4890 2033.333 / 6923.333 1735 / 1735 Output Total 500 / 1300 Balance 3730 / 4090 1533.333 / 5623.333 1735 / 1735 Weight last 48 hrs Weight 190 lb 1.6 oz Weight 175 lb Physical Exam 2 Narrative: Dressing change clean dry intact sitting at the bedside. Urinary Catheter Management: Perry: Cath Placed During This Visit: yes, but has since been removed by the nurse Reason for Continuing Indwelling Catheter: Perioperative Use in Selected Surgeries Urinary Catheter Date of Insertion: 08/07/23 Urinary Catheter Time of Insertion: 21:14 Date Urinary Catheter Removed: 08/09/23 Time Urinary Catheter Discontinued: 06:35 Data 08/10/23 04:55 08/10/23 04:55 A&P Assessment and plan (1) Fracture of hip: Postop day #2 left hip hemiarthroplasty DC home today Qualifiers: Encounter type: initial encounter Fracture type: closed Laterality: l eft Qualified Code(s): S72.002A - Fracture of unspecified part of neck of left femur, initial encounter for closed fracture Attestations 2 Medical Necessity Statement*: Per primary Coding Level of Care Code Acute Code for [facility] Fwd Diagnoses Fracture of hip S72.002A Encounter type: initial encounter Fracture type: closed Laterality: left
--- NOTE | 2023-08-10 12:13 | P.DS_ITS ---
Discharge Providers Date of Admission: 08/07/23 21:37 Date of Discharge: August 10, 2023 Attending Provider at Admission: Britney Osorio MD Attending Provider at Discharge: Sonja Mclean MD Primary Care Provider: Leighann Sharp Diagnoses at Discharge Discharge Diagnosis (1) Fracture of hip: Status: Acute Qualifiers: Encounter type: initial encounter Fracture type: closed Laterality: left Qualified Code(s): S72.002A - Fracture of unspecified part of neck of left femur, initial encounter for closed fracture Reason for Visit Reason for Visit: FALL; HIP PAIN Hospital Course Hospital Course Patient presented after a fall. It was mechanical in nature as she tripped over her 's wheelchair. Patient underwent left hip hemiarthroplasty. D-dimer greater than 20. CTA chest done which showed a right lower lobe pulmonary embolism with no right heart strain. Venous Dopplers negative for DVT. Patient placed on Eliquis PE starter pack. Patient discharged home in stable condition today she has been working well with physical therapy. He states orthopedic surgery cleared patient for discharge today. Surgical incision clean dry intact. Hematology follow-up given at discharge. Hemoglobin stable at 9.9. Repeat CBC prescription given in 3 days. Physical Exam Narrative: female Pleasant GCS 15 sitting up in recliner aox3 abd soft normal s1, s2 no edema b/l surgical incison intact Urinary Catheter Management: Perry: Cath Placed During This Visit: yes, but has since been removed by the nurse Reason for Continuing Indwelling Catheter: Perioperative Use in Selected Surgeries Urinary Catheter Date of Insertion: 08/07/23 Urinary Catheter Time of Insertion: 21:14 Date Urinary Catheter Removed: 08/09/23 Time Urinary Catheter Discontinued: 06:35 Discharge Data Studies Completed and Pending Completed Studies During Hospitalization Category Date Time Status CTA chest [CT angio chest PE protcl [id number]] Routine Cat Scan 08/09/23 10:20 Completed XR chest 1V portable [id number] Stat Exams 08/07/23 19:20 Completed XR hip LT 2-3V wo/w pel* [id number] Stat Exams 08/07/23 18:35 [place] [id number] Routine Ultrasound 08/09/23 12:33 Completed Radiology Impressions Hip/Pelvis X-Ray 08/07/23 18:35 IMPRESSION: Subcapital hip fracture. Chest X-Ray 08/07/23 19:20 IMPRESSION: No acute findings. Chest CTA 08/09/23 10:20 IMPRESSION: Small isolated pulmonary embolus involving the right lower lobe. No evidence of heart strain. ADDENDUM: 08/09/23 1307 COMMENT: THIS REPORT CONTAINS FINDINGS THAT MAY BE CRITICAL TO PATIENT CARE. The exam findings were verbally communicated by me to Sonja Mclean via telephone conference at 1:05 PM CDT on 08/09/2023. The findings were acknowledged and understood. Venous Duplex 08/09/23 12:33 IMPRESSION: No evidence of deep vein thrombosis. Laboratory Results WBC 6.93 10^3/uL (3.29-11.43) 08/10/23 04:55 RBC 3.28 10^6/uL (3.85-5.65) L 08/10/23 04:55 Hgb 9.90 g/dL (11.27-16.99) L 08/10/23 04:55 Hct 31.4 % (36-47) L 08/10/23 04:55 MCV 95.7 fl (85-98) 08/10/23 04:55 MCH 30.2 pg (27-33) 08/10/23 04:55 MCHC 31.5 g/dL (30-55) 08/10/23 04:55 RDW 13.6 % (12.1-15.1) 08/10/23 04:55 Plt Count 148 10^3/cmm (157-399) L 08/10/23 04:55 MPV 10.4 fL (7.4-10.4) 08/10/23 04:55 Neut % (Auto) 70.7 % 08/10/23 04:55 Lymph % (Auto) 19.2 % 08/10/23 04:55 [place] % (Auto) 8.5 % 08/10/23 04:55 Eos % (Auto) 1.0 % 08/10/23 04:55 Baso % (Auto) 0.3 % 08/10/23 04:55 Neut # (Auto) 4.90 10^3/uL (1.8-7.7) 08/10/23 04:55 Lymph # (Auto) 1.3 10^3/uL (0.8-4.8) 08/10/23 04:55 [place] # (Auto) 0.6 10^3/uL (0.2-0.9) 08/10/23 04:55 Eos # (Auto) 0.1 10^3/uL (0.0-0.8) 08/10/23 04:55 Baso # (Auto) 0.0 10^3/uL (0.0-0.1) 08/10/23 04:55 Nucleated RBC % (auto) 0 % 08/10/23 04:55 Nucleated RBCs # 0.0 /100WBC 08/10/23 04:55 PT 13.70 SECONDS (12.1-14.9) 08/07/23 20:42 INR 1.02 (0.8-1.2) 08/07/23 20:42 D-Dimer >= 20.00 ug/mLFEU (0-0.59) H 08/07/23 20:42 Sodium 143 mmol/L (136-145) 08/10/23 04:55 Potassium 3.7 mmol/L (3.5-5.1) 08/10/23 04:55 Chloride 110 mmol/L (98-107) H 08/10/23 04:55 Carbon Dioxide 23 mmol/L (22-29) 08/10/23 04:55 Anion Gap 13.7 (5-19) 08/10/23 04:55 BUN 9 mg/dL (8-23) 08/10/23 04:55 Creatinine 0.5 mg/dL (0.5-0.9) 08/10/23 04:55 GFR Calculation Not Reportable 08/10/23 04:55 Glucose 99 mg/dL (65-115) 08/10/23 04:55 Estimat Average Glucose 100 08/07/23 20:42 Hemoglobin A1c 5.1 % (4.0-6.0) 08/07/23 20:42 Calculated Osmolality 295 mOsm/kg (285-295) 08/10/23 04:55 Calcium 7.5 mg/dL (8.5-10.5) L 08/10/23 04:55 Magnesium 1.7 mg/dL (1.7-2.3) 08/10/23 04:55 Total Bilirubin 0.6 mg/dL (0.15-1.2) 08/07/23 20:42 AST 20 U/L (0-32) 08/07/23 20:42 ALT 15 U/L (0-33) 08/07/23 20:42 Alkaline Phosphatase 76 U/L (35-105) 08/07/23 20:42 Total Protein 6.9 g/dL (6.6-8.7) 08/07/23 20:42 Albumin 3.9 g/dL (3.5-5.2) 08/07/23 20:42 Globulin 3.0 g/dL (1.3-4.6) 08/07/23 20:42 Vitamin B12 1520 pg/mL (232-1245) H 08/07/23 20:42 25-OH Vitamin D Total 34 ng/mL (30-100) 08/07/23 20:42 TSH 3.74 uIU/mL (0.27-4.20) 08/07/23 20:42 Blood Type AB Positive 08/07/23 20:42 Rho(D) Type Rh positive 08/07/23 20:42 Antibody Screen Negative 08/07/23 20:42 Vitals Last Vital Signs Temp 99 F 08/10/23 07:59 Pulse 84 08/10/23 09:20 Resp 18 08/10/23 09:20 BP 108/70 08/10/23 07:59 Pulse Ox 95 08/10/23 09:20 O2 Del Method Room Air 08/10/23 09:20 O2 Flow Rate 98 08/08/23 14:40 Discharge Plan Discharge Patient Disposition: Home Health Service Condition: Stable Prescriptions: New Eliquis DVT-PE Treat 30D Start 5 mg (74 tabs) tablets,dose pack See Rx Instructions .ROUTE .COMPLEX Qty: 74 0RF Rx Instructions: orally per package directions hydrocodone-acetaminophen 5-325 mg Tablet 1 tab PO Q6H PRN (Reason: Breakthrough Pain) Qty: 5 0RF Continued multivitamin Tablet 1 tab PO QAM magnesium 200 mg Tablet 200 mg PO QAM Vitamin D3 50 mcg (2,000 unit) Capsule 50 mcg PO QAM Discharge Orders: Discharge Order (Routine); Ordered 08/10/23 Ordered By: Sonja Mclean Other Ambulatory Orders: Complete Blood Count w/Auto (Routine) Timeframe: 3 Days Location: Determined by Patient Ordered By: Sonja Mclean Referrals: [facility] [Other] Wyatt Traylor DO [Physician] - Leighann Sharp [Primary Care Provider] - Marilyn Spears MD [Hospitalist] - 4-7 days Discharge Diet: Regular Discharge Activity: Increase activity as tolerated, Use walker/crutches as instructed and As per PT/OT instructions Patient Instructions: Opioid Safety Activity Restrictions/Additional Instructions: You are being discharged from the hospital today during which time you have been under the care of Dr. Traylor. You had a left hip fracture. You were treated for this injury with left hip hemiarthroplasty. You may resume you normal diet (including any special diets as directed by your primary doctor) as well as your home medications. You should follow up with you primary doctor if you have any questions regarding medication you took prior to your stay in the hospital. You may take your pain medication as prescribed. After the first few days, take your pain medication as needed. Do not drive or drink alcohol while taking your pain medication. Your injury may increase your risk of developing a blood clot,or DVT, in your arm or leg. This could potentially dislodge and travel to your lungs and become a life threatening condition called apulmonary embolus,or PE. You have been prescribed Eliquis to be taken to prevent this. Frequent movement of the legs will also help prevent this from occurring. If you develop any new or worsening cough, chestpain, bloody sputum or shortness of breath, call 911 or go to the EmergencyRoom. Always keep your surgical incision/dressing clean and dry. If you experience increasing pain at your incision site, redness, swelling, increasing discharge, foul odors, or fevers (greater than 100.4), night sweats or chills you should call the office at the above number. If you feel this is an emergency you should be evaluated in the Emergency Department of a nearby hospital. Orthopedic Patient Instructions Summary: Weight Bearing: Weight-bear as tolerated Activity: As tolerated. Diet: Regular. Wound Care: Keep dressing clean and dry. Anticoagulation: Eliquis Pain Medication: Take only as needed. Ice, rest and elevation will be of great benefit. Please plan to follow-up [facility] Dr Traylor in 2 weeks. You will need to call the clinic [phone] to schedule this visit. Thank you far allowing me to participate in your care. Do not hesitate to call the office with any questions or concerns. Discharge Attestations Time Spent in Discharge Care*: greater than 30 min Quality Metrics Clinical Quality Measures [ No reported AMI, CVA or VTE this stay] Coding Level of Care Code Acute Code for [facility] Fwd Diagnoses Fracture of hip S72.002A Encounter type: initial encounter Fracture type: closed Laterality: left
[2023-08-10 12:20] VITALS: BP 105/69; PULSE 89; RESP 17; TEMP 36.8; O2SAT 98
== END 2023-08-10 14:22 | disposition home or self-care (01) | DRG 521 ==
LOC: ER 20:35 → MEDSURG 21:37
PROVIDERS: Orthopaedic Surgery; Admitting Provider Internal Medicine; Emergency Provider Emergency Medicine; PCP Nurse Practitioner Family; Visit Provider Internal Medicine
PROC: 0SRS0JZ Replacement of Left Hip Joint, Femoral Surface with Synthetic Substitute, Open Approach (ICD-10-PCS; CPT 27125; principal; 2023-08-08 13:25)
DX: S72.002A Fracture of unspecified part of neck of left femur, initial encounter for closed fracture (principal); I26.99 Other pulmonary embolism without acute cor pulmonale; W01.0XXA Fall on same level from slipping, tripping and stumbling without subsequent striking against object, initial encounter
CPT/HCPCS: 36415; 51702; 71045; 71275; 73502; 80048; 80053; 82306; 82607; 83036; 83735; 84443; 85025; 85378; 85610; 86850; 86900; 93005; 93970; 96374; 96375; 97110; 97116; 97161; 97165; 97530; 97535; 99285; C1776; J0690; J1100; J1170; J2270; J2405; J2704; J2710; J3010; J3490; J7030; Q9967

== ENCOUNTER → 2023-08-21 11:02 | Outpatient (BNVA) | payer MEDICARE, SELFPAY | PROVIDERS: PCP Nurse Practitioner Family; Visit Provider Orthopaedic Surgery | DX: Z48.89 Encounter for other specified surgical aftercare (principal) | CPT/HCPCS: 99024 ==

== ENCOUNTER 2023-09-16 11:52 | Oncology outpatient (recurring) (ONCR) | payer MEDICARE, SELFPAY ==
[2023-09-16 13:31] LABS: Basophils # 0.1 10^3/uL (0.0-0.1); Basophils % 0.8 %; Eosinophils # 0.2 10^3/uL (0.0-0.8); Eosinophils % 2.7 %; Hematocrit 38.1 % (36-47); Lymphocytes # 1.6 10^3/uL (0.8-4.8); Mean Corpuscular HGB Conc 31.8 g/dL (30-55); Mean Corpuscular Hemoglobin 30.1 pg (27-33); Mean Corpuscular Volume 94.8 fl (85-98); Mean Platelet Volume 9.7 fL (7.4-10.4); Monocytes # 0.4 10^3/uL (0.2-0.9); Monocytes % 6.5 %; Neutrophils # 4.11 10^3/uL (1.8-7.7); Neutrophils % 64.8 %; Nucleated Red Blood Cells % 0 %; Platelet Count 240 10^3/cmm (157-399); Red Blood Count 4.02 10^6/uL (3.85-5.65); Red Cell Distribution Width 14.1 % (12.1-15.1); White Blood Count 6.33 10^3/uL (3.29-11.43)
[2023-09-16 13:55] LABS: Alanine Aminotransferase 9 U/L (0-33); Albumin Level 4.2 g/dL (3.5-5.2); Alkaline Phosphatase 90 U/L (35-105); Anion Gap 14.5 (5-19); Aspartate Amino Transferase 16 U/L (0-32); Blood Urea Nitrogen 13 mg/dL (8-23); Calcium 9.1 mg/dL (8.5-10.5); Carbon Dioxide 25 mmol/L (22-29); Chloride 102 mmol/L (98-107); Globulin 2.9 g/dL (1.3-4.6); Glucose 91 mg/dL (65-115); Osmolality Calculated 284 mOsm/kg (285-295); Potassium 4.5 mmol/L (3.5-5.1); Sodium 137 mmol/L (136-145); Total Bilirubin 0.2 mg/dL (0.15-1.2); Total Protein 7.1 g/dL (6.6-8.7)
[2023-09-16 14:00] LABS: D Dimer 0.89 ug/mLFEU (0-0.59)
[2023-09-22 17:54] LABS: PROTHROMBIN (FACTOR II) 20210G NEGATIVE
[2023-09-23 19:15] LABS: Factor 5 Leiden Mutation NEGATIVE
== END 2023-10-12 23:59 | disposition home or self-care (01) ==
PROVIDERS: Internal Medicine; PCP Nurse Practitioner Family; Visit Provider Internal Medicine Medical Oncology
DX: I26.99 Other pulmonary embolism without acute cor pulmonale (principal)
CPT/HCPCS: 36415; 73502; 80053; 81241; 85025; 85210; 85378; 99024; 99203

== ENCOUNTER 2024-01-06 09:01 | Oncology outpatient (recurring) (ONCR) | payer MEDICARE, BC, SELFPAY ==
[2024-01-06 09:51] LABS: Basophils # 0.1 10^3/uL (0.0-0.1); Eosinophils # 0.1 10^3/uL (0.0-0.8); Eosinophils % 1.5 %; Lymphocytes # 1.5 10^3/uL (0.8-4.8); Lymphocytes % 30.5 %; Mean Corpuscular HGB Conc 31.5 g/dL (30-55); Mean Corpuscular Volume 92.2 fl (85-98); Mean Platelet Volume 9.6 fL (7.4-10.4); Monocytes # 0.4 10^3/uL (0.2-0.9); Monocytes % 8.6 %; Neutrophils # 2.78 10^3/uL (1.8-7.7); Neutrophils % 58.2 %; Nucleated Red Blood Cells % 0 %; Platelet Count 250 10^3/cmm (157-399); Red Blood Count 4.34 10^6/uL (3.85-5.65); Red Cell Distribution Width 13.8 % (12.1-15.1); White Blood Count 4.78 10^3/uL (3.29-11.43)
[2024-01-06 10:08] LABS: Alanine Aminotransferase 11 U/L (0-33); Alkaline Phosphatase 77 U/L (35-105); Anion Gap 15.3 (5-19); Aspartate Amino Transferase 17 U/L (0-32); Blood Urea Nitrogen 22 mg/dL (8-23); Calcium 9.2 mg/dL (8.5-10.5); Carbon Dioxide 23 mmol/L (22-29); Chloride 104 mmol/L (98-107); Globulin 2.8 g/dL (1.3-4.6); Glucose 98 mg/dL (65-115); Osmolality Calculated 289 mOsm/kg (285-295); Potassium 4.3 mmol/L (3.5-5.1); Sodium 138 mmol/L (136-145); Total Bilirubin 0.3 mg/dL (0.15-1.2); Total Protein 6.8 g/dL (6.6-8.7)
== END 2024-01-12 23:59 | disposition home or self-care (01) ==
PROVIDERS: Internal Medicine; PCP Nurse Practitioner Family; Visit Provider Internal Medicine Medical Oncology
DX: I26.99 Other pulmonary embolism without acute cor pulmonale (principal)
CPT/HCPCS: 36415; 80053; 85025; 99213

== ENCOUNTER 2024-02-04 08:55 | Outpatient (CLI) | payer MEDICARE, BC, SELFPAY ==
--- NOTE | 2024-02-04 08:58 | MM_ITS ---
WS: [id number] BILATERAL SCREENING DIGITAL TOMOSYNTHESIS MAMMOGRAM WITH CAD HISTORY: SCREENING COMPARISON: 01/28/2023, 01/16/2022, 11/24/2019 Bilateral CC and MLO views with tomosynthesis and synthetic mammography submitted. Computer aided det ection analyzed. Breast composition: There are scattered areas of fibroglandular density. No suspicious masses, microc alcifications or architectural distortion. Focal asymmetry in the upper outer quadrant of the LEFT br east is stable. There is an additional partially obscured asymmetry seen on the LEFT CC projection in the lateral breast which is also stable. MM/MM scr BI tomosynthesis [id number] IMPRESSION: BI-RADS: 2 - Benign. FOLLOW UP: 1 Year Follow-up
== END 2024-02-04 08:56 | disposition home or self-care (01) ==
LOC: RAD 08:56
PROVIDERS: PCP Nurse Practitioner Family; Visit Provider Nurse Practitioner Family
DX: Z12.31 Encounter for screening mammogram for malignant neoplasm of breast (principal); R92.323 Mammographic fibroglandular density, bilateral breasts; N64.89 Other specified disorders of breast
CPT/HCPCS: 77063; 77067

== ENCOUNTER 2024-03-03 11:25 | Oncology outpatient (recurring) (ONCR) | payer MEDICARE, BC, SELFPAY ==
[2024-03-03 11:53] LABS: Basophils # 0.1 10^3/uL (0.0-0.1); Basophils % 0.9 %; Eosinophils # 0.1 10^3/uL (0.0-0.8); Eosinophils % 1.1 %; Hematocrit 38.3 % (36-47); Lymphocytes # 1.7 10^3/uL (0.8-4.8); Lymphocytes % 30.1 %; Mean Corpuscular HGB Conc 31.6 g/dL (30-55); Mean Corpuscular Volume 91.8 fl (85-98); Mean Platelet Volume 9.8 fL (7.4-10.4); Monocytes # 0.4 10^3/uL (0.2-0.9); Neutrophils # 3.37 10^3/uL (1.8-7.7); Neutrophils % 60.7 %; Nucleated Red Blood Cells % 0 %; Platelet Count 244 10^3/cmm (157-399); Red Blood Count 4.17 10^6/uL (3.85-5.65); White Blood Count 5.55 10^3/uL (3.29-11.43)
[2024-03-03 12:06] LABS: D Dimer <= 0.27 ug/mLFEU (0-0.59)
[2024-03-03 12:10] LABS: Alanine Aminotransferase 9 U/L (0-33); Albumin Level 4.2 g/dL (3.5-5.2); Alkaline Phosphatase 90 U/L (35-105); Anion Gap 17.4 (5-19); Aspartate Amino Transferase 20 U/L (0-32); Blood Urea Nitrogen 20 mg/dL (8-23); Calcium 9.4 mg/dL (8.5-10.5); Carbon Dioxide 22 mmol/L (22-29); Chloride 104 mmol/L (98-107); Globulin 2.9 g/dL (1.3-4.6); Glucose 99 mg/dL (65-115); Osmolality Calculated 291 mOsm/kg (285-295); Potassium 4.4 mmol/L (3.5-5.1); Sodium 139 mmol/L (136-145); Total Bilirubin 0.4 mg/dL (0.15-1.2); Total Protein 7.1 g/dL (6.6-8.7)
== END 2024-03-13 23:59 | disposition home or self-care (01) ==
PROVIDERS: Nurse Practitioner Family; PCP Nurse Practitioner Family; Visit Provider Internal Medicine Medical Oncology
DX: Z09 Encounter for follow-up examination after completed treatment for conditions other than malignant neoplasm; Z86.711 Personal history of pulmonary embolism; Z53.9 Procedure and treatment not carried out, unspecified reason
CPT/HCPCS: 36415; 80053; 85025; 85378; 99213

== ENCOUNTER 2025-03-04 12:30 | Outpatient (CLI) | payer MEDICARE, BC, SELFPAY ==
--- NOTE | 2025-03-04 | MM_ITS ---
WS: [id number] BILATERAL 3D TOMOSYNTHESIS DIGITAL SCREENING MAMMOGRAPHY WITH CAD CLINICAL INFORMATION: ANNUAL SCREENING HISTORY: Screening mammogram. No current complaints. COMPARISON: 2023 TECHNIQUE: Bilateral CC and MLO views. FINDINGS: Scattered fibroglandular densities bilaterally. No suspicious focal mass, asymmetry, calcifications, or architectural distortion. No evidence of malignancy. Vascular calcification. MM/MM [facility] tomosynthesis [id number] IMPRESSION: DENSITY: There are scattered areas of fibroglandular density. BI-RADS: 2 - Benign. FOLLOW UP: 1 Year Follow-up Recommend return to annual screening mammography.
--- NOTE | 2025-03-04 12:38 | XR_ITS ---
WS: [id number] SCREENING DEXA SCAN [employer] CLINICAL INFORMATION: ASYMPTOMATIC POSTMENOPAUSAL STATE COMPARISON: None. FINDINGS: The L1-L4 bone mineral density measures 1.125 g/cm2. This corresponds to a T score score of -0.5 and Z score of 0.8. Right femoral neck bone mineral density measures 0.718. This corresponds to a T score -2.3 of and Z score of -0.9. LEFT forearm bone mineral density measures 0.58. This corresponds to a T score of -3.4 and Z score of -1.1. XR/XR DEXA axial skeleton* [id number] IMPRESSION: Normal bone mineralization lumbar spine. Osteopenia RIGHT femoral neck. Osteopo rosis LEFT forearm. Patient's FRAX calculated 10 year probability for major osteoporotic fracture i s 21.3% and osteoporotic hip fracture is 5.6%.
== END 2025-03-04 12:31 | disposition home or self-care (01) ==
PROVIDERS: PCP Nurse Practitioner Family; Visit Provider Nurse Practitioner Family
DX: Z12.31 Encounter for screening mammogram for malignant neoplasm of breast (principal); Z13.820 Encounter for screening for osteoporosis; Z78.0 Asymptomatic menopausal state; M85.89 Other specified disorders of bone density and structure, multiple sites; R92.323 Mammographic fibroglandular density, bilateral breasts; R92.1 Mammographic calcification found on diagnostic imaging of breast
CPT/HCPCS: 77063; 77067; 77080